=== PATIENT | female | born 1970 | race Caucasian/White ===

== ENCOUNTER 2018-12-31 14:49 | Emergency (ER) | payer SELFPAY ==
[~2018-12-31] VITALS: Ht 157.5 cm; Wt 68.2 kg
[~2018-12-31 14:49] MED LIST: LORA1TAB PO; PARO10TA57 PO
[2018-12-31 15:00] VITALS: Ht 157.5 cm; Wt 68.2 kg
--- NOTE | 2018-12-31 15:38 | EN ---
Date/Time of Note Date/Time of Note DATE: 12/31/18 TIME: 15:36 ER Progress Note [id number] female with episode of chest pain, elevated blood pressure, facial numbness and anxiety after argument at work. Patient has a history of depression and denies homicidal or suicidal ideations. EKG shows no ischemic changes. ED2 appropriate for medication. FLAVIA STEARNS MD Dec 31, 2018 15:38
[2018-12-31] MEDS ORDERED: ACETAMINOPHEN 500 MG TAB PO STA (16:28)
--- NOTE | 2018-12-31 16:35 | ERD ---
ER Documentation Chief Complaint Chief Complaint ANXIETY ATTACK AFTER AN ARGUMENT HPI 48-year-old female who presents with having an anxiety attack after she got into an argument with a coworker. She states she was at work and started getting into an argument shortly after where she had pain shortness of breath and pain in tingling in her left upper extremity. She has no cardiac past medical history. Her symptoms have now improved but she continues to be tearful. She has a history of anxiety and states a similar episode like this have happened in the past. She has no suicidal or homicidal ideations. She is to take Paxil which she states helps but she has been without it for several months now. ROS All systems reviewed and are negative except as per history of present illness. Allergies Allergies: Coded Allergies: No Known Allergy (Unverified , 12/31/18) PMhx/Soc History of Surgery: Yes (C/S) Anesthesia Reaction: No Hx Miscellaneous Medical Probl: Yes (anxiety-on paxil) Hx Alcohol Use: No Hx Substance Use: No Hx Tobacco Use: No Smoking Status: Never smoker FmHx Family History: No diabetes Physical Exam Vitals Vital Signs Date Temp Pulse Resp B/P (MAP) Pulse Ox O2 O2 Flow FiO2 Time Delivery Rate 12/31/18 98.2 110 20 162/79 100 15:00 (106) Physical Exam INITIAL VITAL SIGNS: Reviewed by me GENERAL: Awake, alert and oriented x 4, well appearing, nontoxic, speaking in full sentences. Anxious and tearful HEAD: Atraumatic NECK: Supple. No masses. Full range of motion. No meningismus. No midline tend erness. EYES: EOMI. PERRL. RESPIRATORY: Clear to auscultation bilaterally. Symmetric chest wall rise. No wheezing or rales. No accessory muscle use. CV: Regular rate and rhythm. No murmurs, rubs, or gallops. NEUROLOGIC: Normal mental status and speech. Face is symmetric. Moves all extremities equally. Motor and sensory distally intact. Normal coordination. Ambulates with a strong steady gait. Results 24 hrs Current Medications Medications Dose Sig/Krissy Start Time Status Last (Trade) Ordered Route PRN Stop Time Admin Dose Reason Admin 1,000 mg ONCE STAT 12/31/18 DC Acetaminophen PO 16:28 (Tylenol 12/31/18 16:30 Tab) Procedures/MDM 48-year-old female is here after having anxiety attack while at work. She has had similar episodes in the past. She used to take Paxil but ran out. I will give her a refill as well as a small amount of Ativan. She declined any anxiety medications at this time but would like some Tylenol for her headache. Patient counseled regarding my diagnostic impression and care plan. Prior to discharge all questions answered. Pt agrees with treatment plan and understands strict return precautions. Pt is instructed to follow up with primary care provider within 24-48 hours. Precautionary instructions provided including instructions to return to the ER if not improving or for any worsening or changing symptoms or concerns. Departure Diagnosis: Primary Impression: Anxiety attack Condition: Stable JAYDE EGAN PA-C Dec 31, 2018 16:34
[2018-12-31 16:57] VITALS: BP 160/84; PULSE 89; RESP 18
== END 2018-12-31 16:56 | disposition home or self-care (01) ==
LOC: FTE 14:49
DX: F41.9 Anxiety disorder, unspecified (principal); R06.02 Shortness of breath
CPT/HCPCS: 93005